=== PATIENT | male | born 1995 | race Caucasian/White ===

== ENCOUNTER 2017-10-03 21:23 | Emergency (ER) | payer MEDICAID, OTHER ==
[~2017-10-03] VITALS: Ht 182.9 cm; Wt 90.9 kg
[2017-10-03] MEDS ORDERED: ALPR1TAB7 PO (21:36)
[2017-10-03] MEDS ORDERED: OLAN10TA3 PO (21:36)
[2017-10-04] MEDS ORDERED: HALOPERIDOL 1 MG TABLET PO ONE
[2017-10-04 00:36] LABS: BASOPHILS % (AUTO) 0.3 % (0.0-2.0); EOSINOPHILS % (AUTO) 1.1 % (1.0-6.0); HEMATOCRIT 40.7 % (41-53); HEMOGLOBIN 13.8 g/dL (13.5-17.5); LYMPHOCYTES # (AUTO) 3.3 K/uL (1.0-4.8); LYMPHOCYTES % (AUTO) 28.9 % (22.0-44.0); MEAN CORPUSCULAR HEMOGLOBIN 28.3 pg (26.0-34.0); MEAN CORPUSCULAR VOLUME 83 fL (80-100); MONOCYTES # (AUTO) 0.6 K/uL (0.1-1.0); MONOCYTES % (AUTO) 5.5 % (2.0-9.0); NEUTROPHILS # (AUTO) 7.2 K/uL (1.8-7.7); NEUTROPHILS % (AUTO) 64.2 % (40.0-70.0); PLATELET COUNT (AUTO) 216 K/uL (150-450); RED BLOOD CELL COUNT(AUTO) 4.89 MIL/uL (4.50-5.90); RED CELL DISTRIBUTION WIDTH 13.6 % (11.5-14.5)
[2017-10-04 00:44] LABS: ANION GAP 10 mmol/L (8-16); CALCIUM, TOTAL 9.4 mg/dL (8.8-10.5); CARBON DIOXIDE 28 mmol/L (22-29); CHLORIDE 107 mmol/L (98-107); CREATININE 0.98 mg/dL (0.60-1.30); GLOMERULAR FILTR. RATE CALC > 60 mL/min (>60); GLUCOSE,RANDOM 97 mg/dL (70-110); POTASSIUM 4.2 mmol/L (3.5-5.1); SODIUM SERUM 145 mmol/L (136-145); UREA NITROGEN, BLOOD 12 mg/dL (7-18)
[2017-10-04 00:50] LABS: ALANINE AMINOTRANSFERASE 59 U/L (12-78); ALBUMIN 4.1 g/dL (3.4-5.0); ALKALINE PHOSPHATASE 135 U/L (46-116); ASPARTATE AMINOTRANSFERASE 25 U/L (15-37); BILIRUBIN,TOTAL 0.7 mg/dL (0.1-1.0); TOTAL PROTEIN, SERUM 7.7 g/dL (6.4-8.2)
[2017-10-04 01:06] LABS: AMPHET/METH SCREEN,URINE NEGATIVE (NEGATIVE); BARBITURATE SCREEN, URINE NEGATIVE (NEGATIVE); BENZODIAZEPINES SCREEN,URINE NEGATIVE (NEGATIVE); CANNABINOID SCREEN,URINE NEGATIVE (NEGATIVE); COCAINE SCREEN,URINE NEGATIVE (NEGATIVE); METHADONE SCREEN, URINE NEGATIVE (NEGATIVE); OPIATE SCREEN,URINE NEGATIVE (NEGATIVE)
[2017-10-04 01:12] LABS: PHENCYCLIDINE SCREEN,URINE NEGATIVE (NEGATIVE)
[2017-10-04 03:02] VITALS: BP 126/75
== END 2017-10-04 03:21 | disposition home or self-care (01) ==
LOC: EMS 21:26
DX: F25.9 Schizoaffective disorder, unspecified (principal); F41.9 Anxiety disorder, unspecified; F32.9 Major depressive disorder, single episode, unspecified; F20.9 Schizophrenia, unspecified
CPT/HCPCS: 99284

== ENCOUNTER 2021-03-23 11:48 | Emergency (ER) | payer MEDICAID ==
[~2021-03-23] VITALS: Ht 172.7 cm; Wt 113.6 kg
[~2021-03-23 11:48] MED LIST: OLAN10TA74 PO; SIMV-259 PO
[2021-03-23] MEDS ORDERED: HALOPERIDOL 5 MG TABLET PO ONE (13:45)
[2021-03-23 13:57] LABS: BASOPHILS % (AUTO) 0.4 % (0.0-2.0); EOSINOPHILS % (AUTO) 0.7 % (1.0-6.0); HEMATOCRIT 41.4 % (41-53); HEMOGLOBIN 13.7 g/dL (13.5-17.5); LYMPHOCYTES # (AUTO) 3.4 K/uL (1.0-4.8); LYMPHOCYTES % (AUTO) 25.2 % (22.0-44.0); MEAN CORPUSCULAR HEMOGLOBIN 27.5 pg (26.0-34.0); MEAN CORPUSCULAR VOLUME 83 fL (80-100); MONOCYTES % (AUTO) 7.4 % (2.0-9.0); NEUTROPHILS # (AUTO) 8.8 K/uL (1.8-7.7); NEUTROPHILS % (AUTO) 66.3 % (40.0-70.0); PLATELET COUNT (AUTO) 274 K/uL (150-450); RED BLOOD CELL COUNT(AUTO) 4.98 MIL/uL (4.50-5.90); RED CELL DISTRIBUTION WIDTH 14.1 % (11.5-14.5)
[2021-03-23 14:46] LABS: ANION GAP 13 mmol/L (8-16); CALCIUM, TOTAL 9.7 mg/dL (8.8-10.5); CARBON DIOXIDE 21 mmol/L (22-29); CHLORIDE 103 mmol/L (98-107); CREATININE 0.96 mg/dL (0.60-1.30); GLOMERULAR FILTR. RATE CALC > 60 mL/min (>60); GLUCOSE,RANDOM 117 mg/dL (70-110); POTASSIUM 4.4 mmol/L (3.5-5.1); SODIUM SERUM 137 mmol/L (136-145); UREA NITROGEN, BLOOD 19 mg/dL (7-18)
[2021-03-23 14:46] LABS: AMPHET/METH SCREEN,URINE NEGATIVE (NEGATIVE); BARBITURATE SCREEN, URINE NEGATIVE (NEGATIVE); BENZODIAZEPINES SCREEN,URINE NEGATIVE (NEGATIVE); CANNABINOID SCREEN,URINE NEGATIVE (NEGATIVE); COCAINE SCREEN,URINE NEGATIVE (NEGATIVE); METHADONE SCREEN, URINE NEGATIVE (NEGATIVE); OPIATE SCREEN,URINE NEGATIVE (NEGATIVE)
[2021-03-23 14:55] LABS: PHENCYCLIDINE SCREEN,URINE NEGATIVE (NEGATIVE)
[2021-03-23 14:55] LABS: ALANINE AMINOTRANSFERASE 138 U/L (12-78); ALBUMIN 4.4 g/dL (3.4-5.0); ALKALINE PHOSPHATASE 109 U/L (46-116); ASPARTATE AMINOTRANSFERASE 58 U/L (15-37); BILIRUBIN,TOTAL 0.7 mg/dL (0.1-1.0); TOTAL PROTEIN, SERUM 8.5 g/dL (6.4-8.2)
[2021-03-23 15:13] LABS: COVID AG,FIA SOURCE NASOPHARYNGEAL
[2021-03-23] MEDS ORDERED: ACETAMINOPHEN 500 MG TABLET PO ONE (16:00)
[2021-03-23] MEDS ORDERED: DiphenhydrAMINE HCL 25 MG CAPSULE PO ONE (16:00)
[2021-03-23] MEDS ORDERED: OLANZapine 5 MG TABLET PO ONE (16:00)
[2021-03-23] MEDS: LORazepam 2 MG TABLET PO ONE ×2 (16:10→16:16)
[2021-03-23 16:32] VITALS: BP 134/73
== END 2021-03-23 16:38 | disposition home or self-care (01) ==
LOC: EMS 12:13
DX: F20.0 Paranoid schizophrenia (principal); R51.9 Headache, unspecified; F32.9 Major depressive disorder, single episode, unspecified; Z20.822 Contact with and (suspected) exposure to COVID-19
CPT/HCPCS: 36415; 80053; 80307; 85025; 87426; 99284; G0480

== ENCOUNTER 2024-11-29 16:01 | Inpatient (IN) | payer MEDICAID ==
[~2024-11-29] VITALS: Ht 175.3 cm; Wt 83.7 kg
[2024-11-29] MEDS ORDERED: RISP-32 PO (16:06)
[2024-11-29 16:42] LABS: BASOPHILS % (AUTO) 0.5 % (0.0-2.0); EOSINOPHILS % (AUTO) 2.7 % (1.0-6.0); HEMATOCRIT 40.8 % (41-53); HEMOGLOBIN 13.4 g/dL (13.5-17.5); LYMPHOCYTES # (AUTO) 2.9 K/uL (1.0-4.8); LYMPHOCYTES % (AUTO) 41.1 % (22.0-44.0); MEAN CORPUSCULAR HGB CONC 32.9 G/dL (31.0-37.0); MEAN CORPUSCULAR VOLUME 88 fL (80-100); MONOCYTES # (AUTO) 0.4 K/uL (0.1-1.0); MONOCYTES % (AUTO) 5.4 % (2.0-9.0); NEUTROPHILS # (AUTO) 3.5 K/uL (1.8-7.7); NEUTROPHILS % (AUTO) 50.3 % (40.0-70.0); PLATELET COUNT (AUTO) 225 K/uL (150-450); RED BLOOD CELL COUNT(AUTO) 4.62 MIL/uL (4.50-5.90); RED CELL DISTRIBUTION WIDTH 14.9 % (11.5-14.5)
[2024-11-29 16:51] LABS: ANION GAP 4 mmol/L (8-16); CALCIUM, TOTAL 9.5 mg/dL (8.8-10.5); CARBON DIOXIDE 30 mmol/L (22-29); CHLORIDE 104 mmol/L (98-107); CREATININE 0.75 mg/dL (0.60-1.30); GLOMERULAR FILTR. RATE CALC > 60 mL/min (>60); GLUCOSE,RANDOM 91 mg/dL (70-110); SODIUM SERUM 138 mmol/L (136-145); UREA NITROGEN, BLOOD 12 mg/dL (7-18)
[2024-11-29] MEDS ORDERED: HALOPERIDOL 5 MG TABLET PO PRN (17:00)
[2024-11-29 17:01] LABS: ALCOHOL, BLOOD (SERUM) < 3 mg/dL (0-10)
[2024-11-29 17:01] LABS: PH,URINE DRUG SCREEN 5.5 (5.0-8.0)
[2024-11-29 17:23] LABS: COVID AG,FIA SOURCE NASAL SWAB
[2024-11-29 17:59] LABS: AMPHET/METH SCREEN,URINE NEGATIVE (NEGATIVE); BARBITURATE SCREEN, URINE NEGATIVE (NEGATIVE); BENZODIAZEPINES SCREEN,URINE NEGATIVE (NEGATIVE); CANNABINOID SCREEN,URINE NEGATIVE (NEGATIVE); COCAINE SCREEN,URINE NEGATIVE (NEGATIVE); METHADONE SCREEN, URINE NEGATIVE (NEGATIVE); OPIATE SCREEN,URINE NEGATIVE (NEGATIVE); PHENCYCLIDINE SCREEN,URINE NEGATIVE (NEGATIVE)
[2024-11-29 18:01] LABS: ALCOHOL, URINE DRUG SCREEN NEGATIVE (NEGATIVE)
[2024-11-29 18:05] LABS: SARS-COV2 (COVID) ANTIGEN,FIA Negative (Negative)
[2024-11-29] MEDS ORDERED: RisperiDONE 1 MG TABLET PO ONE (20:21)
[2024-11-29 20:31] VITALS: O2SAT 98
[2024-11-29] MEDS: RisperiDONE 2 MG TABLET PO ONE (22:02)
[2024-11-29] MEDS: LORazepam 2 MG TABLET PO ONE (22:02)
[2024-11-29 22:19] VITALS: BP 134/66; PULSE 76; RESP 18; TEMP 97.3; O2SAT 98
[2024-11-30] MEDS ORDERED: BENZOCAINE/MENTHOL [CEPACOL] LOZENGE PO PRN (07:30)
[2024-11-30] MEDS ORDERED: DOCUSATE SODIUM 100 MG CAPSULE PO PRN (07:30)
[2024-11-30] MEDS ORDERED: OMEPRAZOLE 20 MG CAPSULE PO PRN (07:30)
[2024-11-30] MEDS ORDERED: ALBUTEROL SULFATE HFA 90 MCG/PUFF 8 GM INHALER IH PRN (07:30)
[2024-11-30] MEDS ORDERED: PETROLATUM,WHITE 28 GM JELLY TP PRN (07:30)
[2024-11-30] MEDS ORDERED: ONDANSETRON 4 MG TABLET PO PRN (07:30)
[2024-11-30] MEDS ORDERED: CloNIDine HCL 0.1 MG TABLET PO PRN (07:30)
[2024-11-30] MEDS ORDERED: LOPERAMIDE HCL 2 MG CAPSULE PO PRN (07:30)
[2024-11-30] MEDS ORDERED: ACETAMINOPHEN 325 MG TABLET PO PRN (07:30)
[2024-11-30] MEDS ORDERED: MAGNESIUM HYDROXIDE SUSPENSION 30 ML UDCUP PO PRN (07:30)
[2024-11-30] MEDS ORDERED: MAG HYDROX/ALUMINUM HYD/SIMETH ES 30 ML SUSPENSION UDCUP PO PRN (07:30)
[2024-11-30] MEDS ORDERED: BACITRACIN 28 GM OINTMENT TP PRN (07:30)
[2024-11-30 08:40] LABS: CHOL/HDL RATIO 3.3 (4.2-7.3); HEMOGLOBIN A1C 4.7 % (3.8-5.6)
[2024-11-30 09:00] VITALS: BP 129/72; PULSE 84; RESP 18; TEMP 97.8; O2SAT 100
[2024-11-30] MEDS: RisperiDONE 3 MG TABLET PO SCH (16:05)
[2024-11-30 20:35] VITALS: BP 118/69; PULSE 85; RESP 18; TEMP 98; O2SAT 100
[2024-11-30] MEDS: BENZTROPINE MESYLATE 2 MG TABLET PO SCH (21:06)
[2024-11-30] MEDS: ZOLPIDEM TARTRATE 10 MG TABLET PO PRN (21:25)
[2024-12-01 08:52] VITALS: BP 122/66; PULSE 82; RESP 18; TEMP 97.6; O2SAT 100
[2024-12-01] MEDS: LORazepam 2 MG TABLET PO PRN (10:49)
[2024-12-01 21:54] VITALS: BP 123/75; PULSE 100; RESP 17; TEMP 97.9; O2SAT 98
[2024-12-02 08:52] VITALS: BP 120/67; PULSE 74; RESP 15; TEMP 97.9; O2SAT 100
[2024-12-02 20:46] VITALS: BP 112/60; PULSE 68; RESP 16; TEMP 98.4; O2SAT 98
[2024-12-03 08:54] VITALS: BP 110/59; PULSE 68; RESP 18; TEMP 98.3; O2SAT 99
[2024-12-03 20:34] VITALS: BP 114/64; PULSE 85; RESP 16; TEMP 98.4; O2SAT 98
[2024-12-04 08:48] VITALS: BP 102/58; PULSE 90; RESP 18; TEMP 98; O2SAT 97
[2024-12-04 20:51] VITALS: BP 142/91; PULSE 98; RESP 17; TEMP 98.7; O2SAT 94
[2024-12-05 09:26] VITALS: BP 108/61; PULSE 71; RESP 17; TEMP 96.8; O2SAT 99
[2024-12-05 20:56] VITALS: BP 103/71; PULSE 70; RESP 17; TEMP 96.8; O2SAT 100
[2024-12-06 08:50] VITALS: BP 104/62; PULSE 75; RESP 17; TEMP 97.2; O2SAT 98
[2024-12-06 20:34] VITALS: BP 106/65; PULSE 73; RESP 16; TEMP 97.3; O2SAT 100
[2024-12-07 09:23] VITALS: BP 115/60; PULSE 70; RESP 17; TEMP 97.1; O2SAT 99
[2024-12-07 21:19] VITALS: BP 108/63; PULSE 71; RESP 18; TEMP 97.4; O2SAT 98
[2024-12-08 09:06] VITALS: BP 109/61; PULSE 83; RESP 19; TEMP 98.3; O2SAT 97
[2024-12-08 21:06] VITALS: PULSE 62; RESP 18; TEMP 97.2; O2SAT 99
[2024-12-09 08:49] VITALS: BP 114/63; PULSE 81; RESP 17; TEMP 97.5; O2SAT 99
[2024-12-09 08:50] VITALS: RESP 17
[2024-12-09] MEDS: IBUPROFEN 600 MG TABLET PO PRN (08:50)
[2024-12-09 09:50] VITALS: RESP 17
[2024-12-09] MEDS ORDERED: RISP3TAB77 PO (10:05)
== END 2024-12-09 17:00 | disposition home or self-care (01) | DRG 750 ==
LOC: EMS 16:02 → B2S 20:14
PROVIDERS: ADMIT Psychiatry & Neurology Psychiatry; ATTEND Psychiatry & Neurology Psychiatry
DX: F20.0 Paranoid schizophrenia (principal); F41.9 Anxiety disorder, unspecified; Z20.822 Contact with and (suspected) exposure to COVID-19; G47.00 Insomnia, unspecified; K59.00 Constipation, unspecified; Z79.899 Other long term (current) drug therapy
CPT/HCPCS: 80048; 80061; 80307; 83036; 85025; 87081; G0480

== ENCOUNTER 2025-06-23 13:14 | Inpatient (IN) | payer MEDICAID, OTHER ==
[~2025-06-23] VITALS: Ht 172.7 cm; Wt 101.6 kg
[~2025-06-23 13:14] MED LIST changes: -OLAN10TA74 PO; +RISP3TAB77 PO; -SIMV-259 PO
[2025-06-23 13:45] LABS: COVID AG,FIA SOURCE NASAL SWAB
[2025-06-23 13:49] LABS: PLATELET COUNT (AUTO) 232 K/uL (150-450); RED BLOOD CELL COUNT(AUTO) 5.09 MIL/uL (4.50-5.90); RED CELL DISTRIBUTION WIDTH 13.5 % (11.5-14.5); WHITE BLOOD COUNT (AUTO) 7.6 K/uL (4.5-11.0)
[2025-06-23 13:59] LABS: CALCIUM, TOTAL 9.0 mg/dL (8.8-10.5); CREATININE 0.96 mg/dL (0.60-1.30); GLOMERULAR FILTR. RATE CALC > 60 mL/min (>60); GLUCOSE,RANDOM 104 mg/dL (70-110); SODIUM SERUM 135 mmol/L (136-145); UREA NITROGEN, BLOOD 13 mg/dL (7-18)
[2025-06-23 14:53] LABS: SARS-COV2 (COVID) ANTIGEN,FIA Negative (Negative)
[2025-06-23 18:56] LABS: APPEARANCE,URINE CLEAR (CLEAR); GLUCOSE, URINE (UA) NEGATIVE (NEGATIVE); LEUKOCYTE ESTERASE ,URINE NEGATIVE (NEGATIVE); NITRATE,URINE NEGATIVE (NEGATIVE); OCCULT BLOOD,URINE NEGATIVE (NEGATIVE); PH,URINE DRUG SCREEN 5.5 (5.0-8.0); SPECIFIC GRAVITIY, URINE 1.011 (1.003-1.030)
[2025-06-23 19:03] LABS: AMPHET/METH SCREEN,URINE NEGATIVE (NEGATIVE); BARBITURATE SCREEN, URINE NEGATIVE (NEGATIVE); CANNABINOID SCREEN,URINE NEGATIVE (NEGATIVE); COCAINE SCREEN,URINE NEGATIVE (NEGATIVE); METHADONE SCREEN, URINE NEGATIVE (NEGATIVE)
[2025-06-23 19:06] LABS: ALCOHOL, URINE DRUG SCREEN NEGATIVE (NEGATIVE)
[2025-06-23] MEDS ORDERED: ZOLPIDEM TARTRATE 10 MG TABLET PO PRN (22:45)
[2025-06-24 01:16] VITALS: O2SAT 99
[2025-06-24 03:19] VITALS: BP 113/72; PULSE 69; RESP 17; TEMP 98.2; O2SAT 98
[2025-06-24 08:27] VITALS: BP 102/64; PULSE 64; RESP 18; TEMP 98.1; O2SAT 100
[2025-06-24] MEDS ORDERED: MAGNESIUM HYDROXIDE SUSPENSION 30 ML UDCUP PO PRN (13:15)
[2025-06-24] MEDS ORDERED: LOPERAMIDE HCL 2 MG CAPSULE PO PRN (13:15)
[2025-06-24] MEDS ORDERED: GuaiFENesin/D-METHORPHAN [SUGAR-FREE] 200-20MG/10 ML SYRUP UDCUP PO PRN (13:15)
[2025-06-24] MEDS ORDERED: MELATONIN 5 MG TABLET PO PRN (13:15)
[2025-06-24] MEDS ORDERED: OLANZapine 5 MG RAPDIS TABLET PO PRN (13:15)
[2025-06-24] MEDS: THIAMINE 100 MG TABLET PO SCH (16:36)
[2025-06-24] MEDS: PALIPERIDONE PALMITATE 234 MG/1.5 ML SYRINGE IM ONE (17:05)
[2025-06-24] MEDS: TUBERCULIN, PURIFIED PROTEIN DERIVATIVE 5 TU/0.1 ML SYRINGE ID ONE (17:12)
[2025-06-24 20:22] VITALS: BP 116/67; PULSE 70; RESP 17; TEMP 98.1; O2SAT 97
[2025-06-24] MEDS: DIVALPROEX SODIUM 500 MG ER TABLET PO SCH (20:51)
[2025-06-24] MEDS: OLANZapine 5 MG RAPDIS TABLET PO SCH (20:52)
[2025-06-25] MEDS: FOLIC ACID 1 MG TABLET PO SCH (08:18)
[2025-06-25] MEDS: MULTIVITAMINS WITH MINERALS, THERAPEUTIC TABLET PO SCH (08:18)
[2025-06-25 08:30] VITALS: BP 107/70; PULSE 64; RESP 16; TEMP 97.9; O2SAT 98
[2025-06-25 20:18] VITALS: BP 108/63; PULSE 81; RESP 16; TEMP 97.3; O2SAT 97
[2025-06-26 08:08] VITALS: BP 111/62; PULSE 88; RESP 17; TEMP 98.4; O2SAT 98
[2025-06-26 20:11] VITALS: BP 102/76; PULSE 83; RESP 17; TEMP 99; O2SAT 99
[2025-06-27 08:10] VITALS: BP 125/79; PULSE 79; RESP 18; TEMP 97.8; O2SAT 99
[2025-06-27 08:54] LABS: PLATELET COUNT (AUTO) 230 K/uL (150-450); RED BLOOD CELL COUNT(AUTO) 5.26 MIL/uL (4.50-5.90); RED CELL DISTRIBUTION WIDTH 13.4 % (11.5-14.5); WHITE BLOOD COUNT (AUTO) 8.2 K/uL (4.5-11.0)
[2025-06-27 09:23] LABS: ASPARTATE AMINOTRANSFERASE 16 U/L (15-37); CALCIUM, TOTAL 9.1 mg/dL (8.8-10.5); CHOL/HDL RATIO 4.5 (4.2-7.3); CREATININE 0.81 mg/dL (0.60-1.30); GLOMERULAR FILTR. RATE CALC > 60 mL/min (>60); GLUCOSE,RANDOM 102 mg/dL (70-110); LDL CHOL (CALC.) 118 mg/dL (0-130); SODIUM SERUM 138 mmol/L (136-145); TOTAL PROTEIN, SERUM 7.9 g/dL (6.4-8.2); UREA NITROGEN, BLOOD 11 mg/dL (7-18)
[2025-06-27 20:32] VITALS: BP 111/69; PULSE 69; RESP 18; TEMP 99.5; O2SAT 99
[2025-06-27] MEDS: ACETAMINOPHEN 325 MG TABLET PO PRN (23:57)
[2025-06-27 23:58] VITALS: BP 107/65; PULSE 83; RESP 18; TEMP 98.3; O2SAT 98
[2025-06-28 08:19] VITALS: BP 119/83; PULSE 78; RESP 18; TEMP 97.8; O2SAT 98
[2025-06-28] MEDS: PALIPERIDONE PALMITATE 156 MG/ML SYRINGE IM ONE (14:07)
[2025-06-28 20:21] VITALS: BP 112/86; PULSE 84; RESP 17; TEMP 97.3; O2SAT 100
[2025-06-29 08:12] VITALS: BP 119/66; PULSE 62; RESP 16; TEMP 98.1; O2SAT 99
[2025-06-29 20:43] VITALS: BP 121/82; PULSE 65; RESP 16; TEMP 98; O2SAT 97
[2025-06-30 08:25] VITALS: BP 108/82; PULSE 74; RESP 17; RESP 18; TEMP 97; O2SAT 100
[2025-06-30] MEDS: ZOLPIDEM TARTRATE 10 MG TABLET PO PRN (20:09)
[2025-06-30 20:12] VITALS: BP 124/79; PULSE 73; RESP 16; TEMP 96.8; O2SAT 98
[2025-07-01 08:25] VITALS: BP 116/74; PULSE 80; RESP 16; TEMP 98; O2SAT 99
[2025-07-01 20:17] VITALS: BP 138/90; PULSE 90; RESP 18; TEMP 97.9; O2SAT 98
[2025-07-01] MEDS: OLANZapine 10 MG RAPDIS TABLET PO SCH (20:35)
[2025-07-01] MEDS: SENNOSIDES 8.8 MG/5 ML SYRUP UDCUP PO SCH (20:36)
[2025-07-02 08:26] VITALS: BP 126/81; PULSE 96; RESP 18; TEMP 97; O2SAT 98
[2025-07-02 20:27] VITALS: BP 111/79; PULSE 78; RESP 16; TEMP 97.3; O2SAT 98
[2025-07-03 08:15] VITALS: BP 111/77; PULSE 84; RESP 17; TEMP 97.5; O2SAT 98
[2025-07-03 20:17] VITALS: BP 115/66; PULSE 86; RESP 17; TEMP 98.1; O2SAT 99
[2025-07-03] MEDS: OLANZapine 5 MG RAPDIS TABLET PO SCH (20:33)
[2025-07-04 08:35] VITALS: BP 112/67; PULSE 86; RESP 17; TEMP 97.4; O2SAT 99
[2025-07-04 08:47] LABS: PLATELET COUNT (AUTO) 220 K/uL (150-450); RED BLOOD CELL COUNT(AUTO) 4.89 MIL/uL (4.50-5.90); RED CELL DISTRIBUTION WIDTH 13.3 % (11.5-14.5); WHITE BLOOD COUNT (AUTO) 8.5 K/uL (4.5-11.0)
[2025-07-04 20:35] VITALS: BP 114/93; PULSE 92; RESP 18; TEMP 97.9; O2SAT 98
[2025-07-05 08:05] VITALS: BP 115/80; PULSE 79; RESP 19; TEMP 97.8; O2SAT 98
[2025-07-05] MEDS: MAG HYDROX/ALUMINUM HYD/SIMETH ES 30 ML SUSPENSION UDCUP PO PRN (18:22)
[2025-07-05 20:14] VITALS: BP 121/84; PULSE 73; RESP 18; TEMP 98.6; O2SAT 97
[2025-07-06 08:09] VITALS: BP 100/86; PULSE 75; RESP 16; TEMP 97.7; O2SAT 99
[2025-07-06 20:15] VITALS: BP 123/80; PULSE 100; RESP 18; TEMP 97.7; O2SAT 98
[2025-07-07 08:50] VITALS: BP 111/71; PULSE 84; RESP 17; TEMP 98.4; O2SAT 99
[2025-07-07 20:13] VITALS: BP 116/74; PULSE 80; RESP 18; TEMP 98.2; O2SAT 99
[2025-07-08 08:08] VITALS: BP 114/75; PULSE 92; RESP 16; TEMP 98; O2SAT 99
[2025-07-08 10:07] LABS: CLOZAPINE & NORCLOZAPINE 191 ng/mL; NORCLOZAPINE 47 ng/mL (Not Estab.)
[2025-07-08 20:14] VITALS: BP 134/86; PULSE 83; RESP 17; TEMP 96.8; O2SAT 98
[2025-07-08] MEDS: PROMETHAZINE HCL 25 MG TABLET PO PRN (22:54)
[2025-07-09 08:09] VITALS: BP 114/86; PULSE 87; RESP 16; TEMP 98.1; O2SAT 99
[2025-07-09 20:06] VITALS: BP 110/66; PULSE 91; RESP 16; TEMP 97.7; O2SAT 97
[2025-07-10 08:05] VITALS: BP 109/74; PULSE 87; RESP 18; TEMP 97.9; O2SAT 99
[2025-07-10 09:20] LABS: PLATELET COUNT (AUTO) 213 K/uL (150-450); RED BLOOD CELL COUNT(AUTO) 4.79 MIL/uL (4.50-5.90); RED CELL DISTRIBUTION WIDTH 13.4 % (11.5-14.5); WHITE BLOOD COUNT (AUTO) 8.4 K/uL (4.5-11.0)
[2025-07-10] MEDS ORDERED: CLOZ100T61 PO (15:41)
[2025-07-10] MEDS ORDERED: MELA5TAB40 PO (15:41)
[2025-07-10] MEDS ORDERED: DIVA-153 PO (15:41)
[2025-07-10 20:17] VITALS: BP 131/93; PULSE 75; RESP 16; TEMP 97.2; O2SAT 97
[2025-07-11 08:09] VITALS: BP 136/93; PULSE 81; RESP 18; TEMP 97.5; O2SAT 97
[2025-07-11] MEDS ORDERED: SENN-376 PO (10:38)
== END 2025-07-11 16:00 | disposition home or self-care (01) | DRG 750 ==
LOC: EMS 13:14 → B3A 06-24 01:54 → EMS 06-24 01:57 → B3A 06-24 01:57
PROVIDERS: ADMIT Psychiatry & Neurology Psychiatry; ATTEND Psychiatry & Neurology Psychiatry
PROC: GZHZZZZ Group Psychotherapy (ICD-10-PCS; principal; 2025-06-24)
PROC: GZ58ZZZ Individual Psychotherapy, Cognitive-Behavioral (ICD-10-PCS; 2025-06-24)
PROC: GZ56ZZZ Individual Psychotherapy, Supportive (ICD-10-PCS; 2025-06-24)
DX: F20.9 Schizophrenia, unspecified (principal); R45.851 Suicidal ideations; E66.9 Obesity, unspecified; Z20.822 Contact with and (suspected) exposure to COVID-19; Z79.899 Other long term (current) drug therapy; Z68.34 Body mass index [BMI] 34.0-34.9, adult; Z63.9 Problem related to primary support group, unspecified; Z59.9 Problem related to housing and economic circumstances, unspecified; Z65.3 Problems related to other legal circumstances; Z55.9 Problems related to education and literacy, unspecified; Z81.8 Family history of other mental and behavioral disorders
CPT/HCPCS: 71046; 80048; 80053; 80061; 80159; 80164; 80307; 81003; 83036; 84439; 85025; 86592; 99285; G0480; 36415-L1; 36415-TC

== ENCOUNTER 2025-07-15 17:37 | Emergency (ER) | payer MEDICAID, OTHER ==
[~2025-07-15] VITALS: Ht 172.7 cm; Wt 81.0 kg
[~2025-07-15 17:37] MED LIST changes: +CLOZ100T61 PO; +DIVA-153 PO; +MELA5TAB40 PO; -RISP3TAB77 PO; +SENN-376 PO
[2025-07-15 17:55] VITALS: TEMP 98.6
[2025-07-15 18:45] LABS: PLATELET COUNT (AUTO) 217 K/uL (150-450); RED BLOOD CELL COUNT(AUTO) 4.29 MIL/uL (4.50-5.90); RED CELL DISTRIBUTION WIDTH 13.9 % (11.5-14.5); WHITE BLOOD COUNT (AUTO) 9.0 K/uL (4.5-11.0)
[2025-07-15 18:54] LABS: CALCIUM, TOTAL 8.9 mg/dL (8.8-10.5); CREATININE 0.84 mg/dL (0.60-1.30); GLOMERULAR FILTR. RATE CALC > 60 mL/min (>60); GLUCOSE,RANDOM 88 mg/dL (70-110); SODIUM SERUM 141 mmol/L (136-145); UREA NITROGEN, BLOOD 10 mg/dL (7-18)
[2025-07-15 18:55] VITALS: BP 130/77; PULSE 80; RESP 18; O2SAT 100
[2025-07-15 19:00] LABS: VALPROIC ACID 58 mcg/mL (50-100)
[2025-07-15 19:04] LABS: TROPONIN I-HIGH SENSITIVITY 18 ng/L (<76)
[2025-07-15 19:47] LABS: COVID AG,FIA SOURCE NASAL SWAB
[2025-07-15 19:55] LABS: PH,URINE DRUG SCREEN 6.5 (5.0-8.0)
[2025-07-15 20:03] LABS: AMPHET/METH SCREEN,URINE NEGATIVE (NEGATIVE); BARBITURATE SCREEN, URINE NEGATIVE (NEGATIVE); CANNABINOID SCREEN,URINE NEGATIVE (NEGATIVE); COCAINE SCREEN,URINE NEGATIVE (NEGATIVE); METHADONE SCREEN, URINE NEGATIVE (NEGATIVE)
[2025-07-15 20:05] LABS: ALCOHOL, URINE DRUG SCREEN NEGATIVE (NEGATIVE)
[2025-07-15 20:10] LABS: SARS-COV2 (COVID) ANTIGEN,FIA Negative (Negative)
[2025-07-16] MEDS ORDERED: RISP-31 PO (00:37)
[2025-07-16] MEDS ORDERED: RISP-32 PO (00:37)
== END 2025-07-15 19:58 | disposition home or self-care (01) ==
LOC: EMS 17:37
DX: R11.0 Nausea (principal); R51.9 Headache, unspecified; F20.9 Schizophrenia, unspecified; F32.A Depression, unspecified; Z79.899 Other long term (current) drug therapy; Z20.822 Contact with and (suspected) exposure to COVID-19
CPT/HCPCS: 99284; 87426; 80048; 80164; 83690; 84484; 85025; 36415; 93005; 80307; G0480